=== PATIENT | male | born 1960 | race Two or more races ===

== ENCOUNTER 2021-11-22 13:41 | Inpatient (IN) | payer OTHER ==
[2021-11-22] MEDS ORDERED: MAGNESIUM CITRATE 300 ML BOTTLE PO PRN (15:26)
[2021-11-22] MEDS ORDERED: BISMUTH SUBSALICYLATE 524 MG/30 ML PO PRN (15:26)
[2021-11-22] MEDS ORDERED: MAG HYDROX/AL HYDROX/SIMETH 30 ML UNIT-DOSE CUP PO PRN (15:26)
[2021-11-22] MEDS ORDERED: NICOTINE 10 MG CARTRIDGE (INHALER) IH PRN (15:26)
[2021-11-22] MEDS ORDERED: MAGNESIUM HYDROX 2400MG/30ML ORAL SUSPENSION 30 ML CUP PO PRN (15:26)
[2021-11-22] MEDS ORDERED: MENTHOL/PHENOL 1 EACH UD MM PRN (15:26)
[2021-11-22] MEDS ORDERED: LOPERAMIDE HCL 2 MG CAPSULE PO PRN (15:26)
[2021-11-22] MEDS ORDERED: IBUPROFEN 400 MG TABLET (FP) PO PRN (15:26)
[2021-11-22] MEDS ORDERED: ACETAMINOPHEN 325 MG TABLET (FP) PO PRN (15:26)
[2021-11-22] MEDS ORDERED: ONDANSETRON *ODT* 4 MG TABLET SL PRN (15:26)
[2021-11-22] MEDS ORDERED: NICOTINE 7 MG/24 HOURS TOPICAL PATCH TD SCH (15:30)
[2021-11-22 15:57] VITALS: BMI 25.7
[2021-11-22] MEDS ORDERED: hydrOXYzine PAMOATE 25 MG CAPSULE (FP) PO SCH (18:00)
[2021-11-22] MEDS ORDERED: NICOTINE POLACRILEX 2 MG GUM BUC PRN (18:05)
[2021-11-22] MEDS ORDERED: methaDONE HCL 10 MG TABLET (FOR DETOX USE ONLY) PO ONE (18:06)
[2021-11-22] MEDS ORDERED: methaDONE HCL 10 MG TABLET (FOR DETOX USE ONLY) ONE (19:38)
[2021-11-22] MEDS ORDERED: MELATONIN 5 MG TABLETS PO SCH (22:00)
[2021-11-22] MEDS: METHOCARBAMOL 500 MG TABLET PO PRN (22:16)
[2021-11-22] MEDS: hydrOXYzine PAMOATE 25 MG CAPSULE (FP) PO PRN (22:17)
[2021-11-22] MEDS: THIAMINE HCL 100 MG TABLET (FP) PO SCH (22:17)
[2021-11-23] MEDS: cloNIDine HCL 0.1 MG TABLET PO PRN ×3 (08:44→22:17)
[2021-11-23] MEDS ORDERED: methaDONE HCL 10 MG TABLET (FOR DETOX USE ONLY) PO ONE (10:00)
[2021-11-23] MEDS: LISINOPRIL 20 MG TABLET PO SCH (10:28)
[2021-11-23] MEDS: NICOTINE 7 MG/24 HOURS TOPICAL PATCH TD SCH (10:29)
[2021-11-23] MEDS: PRENATAL VITAMINS W/ FOLIC ACID TABLET (FP) PO SCH (10:29)
[2021-11-23 11:40] LABS: HEMATOCRIT 40.4 % (35.4-49); HEMOGLOBIN 13.8 GM/dL (11.7-16.9); MCH 29.7 pg (25.7-33.7); MCHC 34.2 g/dl (32.0-35.9); MEAN CELL VOLUME 86.8 fl (80-96); MEAN PLT VOLUME 8.9 fl (7.5-11.1); PLATELET COUNT 240 10^3/uL (134-434); RBC 4.66 M/mm3 (4.00-5.60); RDW 13.5 % (11.9-15.9); WHITE BLOOD COUNT 7.8 K/mm3 (4.0-10.0)
[2021-11-23 11:45] LABS: BLOOD UREA NITROGEN 25.5 mg/dL (7-18)
[2021-11-23 11:46] LABS: ALBUMIN 3.3 g/dl (3.4-5.0)
[2021-11-23 11:48] LABS: CALCIUM 9.1 mg/dL (8.5-10.1)
[2021-11-23 11:49] LABS: CREATININE 1.8 mg/dL (0.55-1.3)
[2021-11-23 11:50] LABS: BILIRUBIN,TOTAL 0.3 mg/dL (0.2-1)
[2021-11-23] MEDS: DULoxetine HCL 20 MG CAPSULE.DR PO SCH (12:36)
[2021-11-23] MEDS: THIAMINE HCL 100 MG TABLET (FP) PO SCH (22:17)
[2021-11-23] MEDS: SUVOREXANT 10 MG TABLET PO PRN (22:18)
[2021-11-24] MEDS: cloNIDine HCL 0.1 MG TABLET PO PRN ×4 (06:08→21:53)
[2021-11-24] MEDS ORDERED: methaDONE HCL 10 MG TABLET (FOR DETOX USE ONLY) PO ONE (10:00)
[2021-11-24] MEDS: NICOTINE 7 MG/24 HOURS TOPICAL PATCH TD SCH (11:12)
[2021-11-24] MEDS: METHOCARBAMOL 500 MG TABLET PO PRN (11:12)
[2021-11-24] MEDS: DULoxetine HCL 20 MG CAPSULE.DR PO SCH (11:12)
[2021-11-24] MEDS: LISINOPRIL 20 MG TABLET PO SCH (11:12)
[2021-11-24] MEDS: PRENATAL VITAMINS W/ FOLIC ACID TABLET (FP) PO SCH (11:12)
[2021-11-24] MEDS: HYDROCHLOROTHIAZIDE 25 MG TABLET (FP) PO SCH (13:38)
[2021-11-24] MEDS: ACETAMINOPHEN 325 MG TABLET (FP) PO PRN (17:57)
[2021-11-24] MEDS: hydrOXYzine PAMOATE 25 MG CAPSULE (FP) PO PRN (17:57)
[2021-11-24] MEDS ORDERED: hydrOXYzine PAMOATE 25 MG CAPSULE (FP) PO PRN (19:21)
[2021-11-24] MEDS: THIAMINE HCL 100 MG TABLET (FP) PO SCH (21:53)
[2021-11-25] MEDS: METHOCARBAMOL 500 MG TABLET PO PRN (07:09)
[2021-11-25] MEDS: cloNIDine HCL 0.1 MG TABLET PO PRN ×3 (07:45→22:14)
[2021-11-25] MEDS ORDERED: methaDONE HCL 10 MG TABLET (FOR DETOX USE ONLY) PO ONE (10:00)
[2021-11-25] MEDS: HYDROCHLOROTHIAZIDE 25 MG TABLET (FP) PO SCH (10:21)
[2021-11-25] MEDS: LISINOPRIL 20 MG TABLET PO SCH (10:21)
[2021-11-25] MEDS: PRENATAL VITAMINS W/ FOLIC ACID TABLET (FP) PO SCH (10:22)
[2021-11-25] MEDS: DULoxetine HCL 20 MG CAPSULE.DR PO SCH (10:22)
[2021-11-25] MEDS: NICOTINE 7 MG/24 HOURS TOPICAL PATCH TD SCH (10:23)
[2021-11-25] MEDS: ACETAMINOPHEN 325 MG TABLET (FP) PO PRN (13:42)
[2021-11-25] MEDS: THIAMINE HCL 100 MG TABLET (FP) PO SCH (22:14)
[2021-11-25] MEDS: SUVOREXANT 10 MG TABLET PO PRN (22:14)
[2021-11-26] MEDS: HYDROCHLOROTHIAZIDE 25 MG TABLET (FP) PO SCH (09:09)
[2021-11-26] MEDS: LISINOPRIL 20 MG TABLET PO SCH (09:09)
[2021-11-26] MEDS: NICOTINE 7 MG/24 HOURS TOPICAL PATCH TD SCH (09:11)
[2021-11-26] MEDS: PRENATAL VITAMINS W/ FOLIC ACID TABLET (FP) PO SCH (09:11)
[2021-11-26 09:20] VITALS: BP 151/86; PULSE 87; TEMP 97.8
[2021-11-26] MEDS: DULoxetine HCL 20 MG CAPSULE.DR PO SCH (09:26)
[2021-11-26] MEDS ORDERED: methaDONE HCL 10 MG TABLET (FOR DETOX USE ONLY) PO ONE (10:00)
== END 2021-11-26 09:50 | disposition home or self-care (01) | DRG 773 ==
LOC: YASAS 13:41 → Y6N 18:34
PROVIDERS: ADMIT Allergy & Immunology; ATTEND Allergy & Immunology
PROC: HZ2ZZZZ Detoxification Services for Substance Abuse Treatment (ICD-10-PCS; principal; 2021-11-22)
DX: F11.23 Opioid dependence with withdrawal (principal); F17.210 Nicotine dependence, cigarettes, uncomplicated; F19.282 Other psychoactive substance dependence with psychoactive substance-induced sleep disorder; F32.A Depression, unspecified; M32.9 Systemic lupus erythematosus, unspecified; E86.0 Dehydration; I10 Essential (primary) hypertension; Z86.11 Personal history of tuberculosis
CPT/HCPCS: 36415; 80053; 85027; 86780; 93005; 93010; C9803; J0735; U0003; U0005